=== PATIENT | male | born 1950 | race Caucasian/White ===

== ENCOUNTER → 2022-10-22 11:25 | Outpatient (BNVA) | payer BC, SELFPAY | PROVIDERS: Visit Provider Podiatrist Foot & Ankle Surgery | DX: M20.41 Other hammer toe(s) (acquired), right foot (principal); M20.42 Other hammer toe(s) (acquired), left foot; M77.41 Metatarsalgia, right foot; M77.42 Metatarsalgia, left foot | CPT/HCPCS: 73630 ==